=== PATIENT | female | born 1990 | race Caucasian/White ===

== ENCOUNTER 2017-02-20 10:59 | Emergency (ER) | payer OTHER ==
[2017-02-20 11:06] VITALS: O2SAT 98
[2017-02-20] MEDS ORDERED: TDAP ADULT 0.5 ML INJ (BOOSTRIX) IM ONE (12:14)
--- NOTE | 2017-02-20 12:24 | EDPHY ---
H & P Time Seen by Provider: 02/20/17 11:22 HPI/ROS: CHIEF COMPLAINT: Dog bite right hand HISTORY OF PRESENT ILLNESS: 26-year-old female presents emergency department with a dog bite to her right hand. Patient reports a dog went after her dog and she got in the middle. Rabies vaccination of the dog are up-to-date. Unknown tetanus status. No numbness or tingling in her hand, no other complaints. Smoking Status: Never smoked Physical Exam: GEN: Awake, alert, oriented, no acute distress RESP: nl resp effort MSK: Full active range of motion right hand against resistance, 1 cm puncture wound to dorsal aspect of right hand proximal to middle finger MCP joint, small abrasion to dorsal aspect of middle finger over middle phalanx. 2 point discrimination intact. No tendon laceration visualized Constitutional: Initial Vital Signs Temperature (C) 36.8 C 02/20/17 11:01 Heart Rate 70 02/20/17 11:01 Respiratory Rate 16 02/20/17 11:01 Blood Pressure 146/84 H 02/20/17 11:01 O2 Sat (%) 98 02/20/17 11:01 O2 Delivery Mode Room Air Allergies/Adverse Reactions: Sulfa (Sulfonamide Antibiotics) Allergy (Severe, Verified 12/04/10 18:20) Home Medications: Medication Instructions Recorded Amoxicillin/Clavulanate Pot 875 mg PO BID #14 tab 02/20/17 [Augmentin 875Mg] MDM/Departure - MDM Medications Given: Discontinued Medications Amoxicillin/Clavulanate Potassium (Augmentin 875mg) 875 mg PO EDNOW ONE PRN Reason: Protocol Stop: 02/20/17 12:26 Last Admin: 02/20/17 12:36 Dose: 875 mg Diphtheria/Tetanus/Acell Pertussis (Boostrix) 0.5 ml IM .ONCE ONE Stop: 02/20/17 12:15 Last Admin: 02/20/17 12:27 Dose: 0.5 ml ED Course/Re-evaluation: Patient presents with a dog bite to her right hand. This is anesthetized, irrigated well, dressing placed. She is placed on Augmentin and will return to the emergency department in 72 hours for a delayed closure. - Depart Disposition: Home, Routine, Self-Care Clinical Impression: Dog bite of right hand Qualifiers: Encounter type: initial encounter Qualified Code(s): S61.451A - Open bite of right hand, initial encounter Condition: Good Instructions: Animal Bite (ED) Additional Instructions: Soak your hand in warm water 5 times a day for 5 minutes. Take your antibiotics as prescribed. Return to the emergency department in 72 hours for delayed closure. Return to the emergency department immediately for any increased redness, swelling, pain, fevers. Prescriptions: Amoxicillin/Clavulanate Pot [Augmentin 875Mg] 875 mg PO BID #14 tab Referrals: Hayley Chavez MD [Primary Care Provider] - As per Instructions
[2017-02-20] MEDS ORDERED: AMOXICILLIN/CLAVULANATE POT 875/125 MG TAB PO ONE (12:25)
[2017-02-20 12:43] VITALS: BP 122/88; PULSE 68; RESP 15; TEMP 98.8
== END 2017-02-20 12:43 | disposition home or self-care (01) ==
PROC: 3E0234Z Introduction of Serum, Toxoid and Vaccine into Muscle, Percutaneous Approach (ICD-10-PCS; principal; 2017-02-20)
DX: S61.451A Open bite of right hand, initial encounter (principal); Z23 Encounter for immunization; W54.0XXA Bitten by dog, initial encounter; Y99.0 Civilian activity done for income or pay; Y93.89 Activity, other specified

== ENCOUNTER 2017-02-23 13:19 | Emergency (ER) | payer OTHER ==
[2017-02-23 13:28] VITALS: BP 124/66; PULSE 51; RESP 16; TEMP 98.1; O2SAT 99
--- NOTE | 2017-02-23 13:43 | EDPHY ---
H & P Stated Complaint: bit by dog r hand monday/here for delayed closure HPI/ROS: CHIEF COMPLAINT: Dog bite to hand, here for delayed closure HISTORY OF PRESENT ILLNESS: Patient was trying to break up a fight between 2 dogs on Monday when she was bit on the back. She was seen here at this facility. The wound was irrigated she was placed on Augmentin. She has been taking this as prescribed for 3 and half days. She presents now for delayed closure. She denies any fever. No new pain in the hand. No redness, warmth or purulence from the and. No difficulty with flexion or extension of the fingers, flexion extension of the wrist. There is no erythema tracking up the wrist or forearm. No other associated complaints or modifying factors. TIME OF INJURY: Monday, February 20 TETANUS STATUS: Up-to-date REVIEW OF SYSTEMS: Ten systems reviewed and are negative unless otherwise noted in the HPI EXAMINATION General Appearance: Alert, no distress Head: normocephalic, atraumatic Cardiovascular: Pulses normal throughout. Symmetric radial pulses 2+ Brisk cap refill Neurological: A&O, sensory symmetric, strength symmetric. Excellent Skin: Warm and dry, no rash. No erythema. No fluctuance, induration or purulence. There is a puncture wound on the dorsum of the right hand and superficial laceration lateral to this. There is no foreign body present. No signs of infection Extremities: Mild tenderness of the dorsum of the right hand over the puncture. Range of motion is fully intact with excellent extension, flexion of the fingers. Good abduction abduction of the fingers. No evidence of infection DIFFERENTIAL DIAGNOSES: Including but not limited to dog bite hand, delayed closure, complex laceration , puncture wound, MDM: 1:40 p.m. Dog bite to the dorsum of the right hand. She has been on Augmentin for 3 days. She has no new complaints. The hand is very well-appearing. There is no surrounding erythema. No evidence of tenosynovitis or septic joint. There is no purulence, fluctuance or induration. The wound has been anesthetized. We will irrigate and proceed with delayed closure. 2:15 p.m. Delayed closure of dog bite to the right hand. The wound appears to be healing quite well. The wound has been irrigated and closed without complication. We discussed wound care. Return here for suture removal in 7 days. Return sooner for signs of infection should that develop. Discharged home in stable condition , neurovascular intact PROCEDURE: Laceration repair/delayed closure Consent: Verbal Location: Dorsum of the right hand Length of repair: 1 cm Complexity: Simple Layer involvement: Single Anesthesia: Local, 1% lidocaine with epinephrine, 4 mL Irrigation: Extensive Debridement: None Procedure description: Following good anesthesia, the wound was copiously irrigated. Wound bed was explored and there is no foreign body noted. Wound borders were approximated well with good hemostasis. Tolerated well without complication. Suture/Staple material: 5-0 Ethilon, 3 simple interrupted sutures Wound care: Routine as discussed Suture/Staple removal: 7-10 Days SUTURE STAPLE REMOVAL: 7-10 days ED Precautions: Worsening pain. Erythema, edema, cyanosis, pallor, paresthesia or anesthesia. SUPERVISION: This patient was independently evaluated without direct examination by the attending physician. Case was discussed with attending physician. Source: Patient Exam Limitations: No limitations - Personal History LMP (Females 10-55): 15-21 Days Ago Current Tetanus/Diphtheria Vaccine: Yes - Medical/Surgical History Hx Asthma: No Hx Chronic Respiratory Disease: No Hx Diabetes: No Hx Cardiac Disease: No Hx Renal Disease: No Hx Cirrhosis: No Hx Alcoholism: No Hx HIV/AIDS: No Hx Splenectomy or Spleen Trauma: No Other PMH: Denies - Social History Smoking Status: Never smoked Constitutional: Initial Vital Signs Temperature (C) 98.1 F 02/23/17 13:23 Heart Rate 51 L 02/23/17 13:23 Respiratory Rate 16 02/23/17 13:23 Blood Pressure 124/66 H 02/23/17 13:23 O2 Sat (%) 99 02/23/17 13:23 O2 Delivery Mode Room Air Allergies/Adverse Reactions: Sulfa (Sulfonamide Antibiotics) Allergy (Severe, Verified 02/23/17 13:22) Home Medications: Medication Instructions Recorded Amoxicillin/Clavulanate Pot 875 mg PO BID #14 tab 02/20/17 [Augmentin 875Mg] Departure - Departure Disposition: Home, Routine, Self-Care Clinical Impression: Dog bite of right hand Qualifiers: Encounter type: subsequent encounter Qualified Code(s): S61.451D - Open bite of right hand, subsequent encounter Condition: Good Instructions: Care For Your Stitches (ED), Laceration (ED) Additional Instructions: 1. Continue Augmentin till completion 2. Return here for any signs of infection as discussed 3. Return here in 7 days for suture removal Referrals: Hayley Chavez MD [Primary Care Provider] - As per Instructions
== END 2017-02-23 14:15 | disposition home or self-care (01) ==
PROC: 0HQFXZZ Repair Right Hand Skin, External Approach (ICD-10-PCS; principal; 2017-02-23)
DX: S61.451D Open bite of right hand, subsequent encounter (principal); W54.0XXD Bitten by dog, subsequent encounter